=== PATIENT | female | born 1995 | race Hispanic/Latino ===

== ENCOUNTER 2021-12-23 09:28 | Inpatient (IN) | payer OTHER ==
[2021-12-22 11:34] LABS: SARS-CoV-2 NAA Rapid Test Not Detected (NotDetected)
[2021-12-22 11:40] LABS: Hemoglobin 10.6 g/dL (12.0-15.5)
[2021-12-22 12:14] LABS: HBSAg Index 0.28 S/CO (0-0.99); Hep B Surf Ag Non-Reactive S/CO (NonReactive); Syphilis Antibody Nonreactive (Nonreactive); Syphilis Antibody Index 0.04 S/CO (<1.00 Non-Reactive)
[2021-12-23] MEDS ORDERED: Morphine PF 10 MG/10 ML VIAL ONE (11:13)
[2021-12-23] MEDS ORDERED: Ondansetron PF 4 MG/2 ML Vial ONE (11:16)
[2021-12-23] MEDS ORDERED: Dexamethasone 4 mg/ml Vial ONE (11:16)
[2021-12-23] MEDS ORDERED: Glycopyrrolate 0.2 MG/ML 5 ML SYRINGE ONE (11:16)
[2021-12-23] MEDS ORDERED: Oxytocin 10 UNITS/ML VIAL ONE (11:16)
[2021-12-23] MEDS ORDERED: PHENYLEPHRINE-NS 100 MCG/ML 10 ML SYRINGE ONE (11:16)
[2021-12-23] MEDS ORDERED: Phenylephrine 40 MG/NS 250 ML 250 ML ONE (11:16)
[2021-12-23] MEDS ORDERED: Ketorolac Tromethamine 30 MG/ML VIAL ONE (11:16)
[2021-12-23] MEDS ORDERED: Lactated Ringer's 1,000 ML IV SCH (11:29)
[2021-12-23] MEDS ORDERED: Famotidine/PF 20 mg/2ml Vial SLOW IVP PRN (11:29)
[2021-12-23] MEDS ORDERED: Bicitra 30 ML UDCUP PO PRN (11:29)
[2021-12-23] MEDS ORDERED: Promethazine HCl 25 MG/ML VIAL IM PRN ×3 (11:29→15:40)
[2021-12-23] MEDS ORDERED: Ondansetron PF 4 MG/2 ML Vial IVP PRN ×3 (11:29→15:40)
[2021-12-23] MEDS ORDERED: CEFAZOLIN 2 GM in Sodium Chloride 0.9% 100 ML IVPB SCH (11:29)
[2021-12-23] MEDS ORDERED: hydrALAZINE 20 MG/ML VIAL SLOW IVP PRN ×2 (11:29→15:40)
[2021-12-23 11:31] LABS: #Monocytes 0.4 10x3/uL (0.0-1.1); #Neutrophils 5.4 10x3/uL (1.5-8.4); %Basophils 0.1 % (0.0-2.0); %Eosinophils 0.5 % (0.0-6.0); %Lymphocytes 21.7 % (18.0-47.0); %Monocytes 5.7 % (0.0-10.0); %Neutrophils 71.7 % (40.0-75.0); Hemoglobin 10.3 g/dL (12.0-15.5); Mean Corpuscular HGB CONC 32.8 g/dL (32.0-36.0); Mean Corpuscular Hemoglobin 25.7 pg (27.0-33.0); Mean Corpuscular Volume 78.3 fl (81.6-98.3); Mean Platelet Volume 9.1 fl (7.4-10.4); Platelet Count 282 10x3/uL (150-450); Red Blood Cell (RBC) Count 4.01 10x6/uL (3.90-5.03); White Blood Cell (WBC) Count 7.5 10x3/uL (3.5-10.5)
[2021-12-23 11:35] VITALS: BMI 33.1
[2021-12-23] MEDS ORDERED: diphenhydrAMINE 50 MG/ML VIAL IVP PRN (11:45)
[2021-12-23] MEDS ORDERED: Ketorolac Tromethamine 30 MG/ML VIAL IVP SCH ×2 (11:45→16:00)
[2021-12-23] MEDS ORDERED: Communication Order-Pharmacy FS SCH (11:45)
[2021-12-23] MEDS ORDERED: Ketorolac Tromethamine 30 MG/ML VIAL IVP PRN (11:45)
[2021-12-23] MEDS ORDERED: Promethazine HCl 25 MG SUPP PR PRN (11:45)
[2021-12-23] MEDS ORDERED: Fentanyl 100 MCG/2 ML VIAL SLOW IVP PRN (11:45)
[2021-12-23] MEDS ORDERED: Naloxone HCl 0.4 mg/ml Vial IV PRN (11:45)
[2021-12-23] MEDS ORDERED: Ondansetron HCl/PF 4 MG/2 ML Vial IVP PRN (11:45)
[2021-12-23] MEDS ORDERED: Naloxone HCl 0.4 mg/ml Vial IVP PRN ×2 (11:45)
[2021-12-23] MEDS ORDERED: Meperidine HCl/PF 25 MG/ML VIAL SLOW IVP PRN (11:45)
[2021-12-23] MEDS ORDERED: Moisturizing Cream (Eucerin) 113 GM JAR TOP PRN (11:45)
[2021-12-23] MEDS ORDERED: Simethicone Chewable 80 MG TAB PO PRN (15:40)
[2021-12-23] MEDS ORDERED: NS w/ Oxytocin 30 units 500 ML IV SCH (15:40)
[2021-12-23] MEDS ORDERED: Lanolin Ointment 7 GM TUBE TOP PRN (15:40)
[2021-12-23] MEDS ORDERED: diphenhydrAMINE 25 MG CAP PO PRN (15:40)
[2021-12-23] MEDS ORDERED: Bisacodyl 10 MG SUPP PR PRN (15:40)
[2021-12-23] MEDS ORDERED: Boostrix 0.5 ML (Tdap) VIAL (>/=7 yrs of age) IM ONE (15:40)
[2021-12-23] MEDS ORDERED: HYDROcodone/Acetaminophen 5/325 mg Tablet PO PRN (15:40)
[2021-12-23] MEDS: Ferrous Sulfate 325 MG TAB PO SCH (20:13)
[2021-12-23] MEDS: Docusate 100 MG CAP PO SCH (20:13)
[2021-12-23] MEDS: Ketorolac Tromethamine 30 MG/ML VIAL IVP SCH (20:13)
[2021-12-24] MEDS: Ketorolac Tromethamine 30 MG/ML VIAL IVP SCH ×3 (01:56→12:20)
[2021-12-24 04:38] LABS: Hemoglobin 9.3 g/dL (12.0-15.5); Mean Corpuscular HGB CONC 32.5 g/dL (32.0-36.0); Mean Corpuscular Hemoglobin 25.3 pg (27.0-33.0); Mean Corpuscular Volume 77.9 fl (81.6-98.3); Platelet Count 255 10x3/uL (150-450); RBC Distribution Width 13.9 % (11.5-14.5); Red Blood Cell (RBC) Count 3.67 10x6/uL (3.90-5.03); White Blood Cell (WBC) Count 9.1 10x3/uL (3.5-10.5)
[2021-12-24] MEDS: Ferrous Sulfate 325 MG TAB PO SCH ×2 (08:18→21:13)
[2021-12-24] MEDS: HYDROcodone/Acetaminophen 5/325 mg Tablet PO PRN ×3 (08:18→18:41)
[2021-12-24] MEDS: Docusate 100 MG CAP PO SCH ×2 (08:18→21:13)
[2021-12-24] MEDS: Prenatal Vitamin 1 TAB PO SCH (08:18)
[2021-12-24] MEDS: Ibuprofen 800 MG TAB PO SCH (18:40)
[2021-12-25] MEDS: Ibuprofen 800 MG TAB PO SCH ×3 (03:58→19:27)
[2021-12-25] MEDS: Ferrous Sulfate 325 MG TAB PO SCH ×2 (09:25→20:15)
[2021-12-25] MEDS: Prenatal Vitamin 1 TAB PO SCH (09:25)
[2021-12-25] MEDS: Docusate 100 MG CAP PO SCH ×2 (09:25→20:15)
[2021-12-25] MEDS: HYDROcodone/Acetaminophen 5/325 mg Tablet PO PRN (09:25)
[2021-12-25 20:41] VITALS: TEMP 98.1
[2021-12-26] MEDS: Ibuprofen 800 MG TAB PO SCH (03:37)
[2021-12-26 07:59] VITALS: BP 113/55
[2021-12-26] MEDS: Ferrous Sulfate 325 MG TAB PO SCH (08:56)
[2021-12-26] MEDS: Docusate 100 MG CAP PO SCH (08:56)
[2021-12-26] MEDS: Prenatal Vitamin 1 TAB PO SCH (08:56)
== END 2021-12-26 14:00 | disposition home or self-care (01) | DRG 788 ==
LOC: CSHLD 09:28 → CSHPP 15:30
PROVIDERS: ADMIT Family Medicine; ATTEND Family Medicine
PROC: 10D00Z1 Extraction of Products of Conception, Low, Open Approach (ICD-10-PCS; principal; 2021-12-23)
DX: O34.212 Maternal care for vertical scar from previous cesarean delivery (principal); Z37.0 Single live birth; Z20.822 Contact with and (suspected) exposure to COVID-19; Z3A.39 39 weeks gestation of pregnancy; Z79.899 Other long term (current) drug therapy; O99.62 Diseases of the digestive system complicating childbirth; K66.0 Peritoneal adhesions (postprocedural) (postinfection); O62.2 Other uterine inertia
CPT/HCPCS: 36415; 51702; 85014; 85018; 85025; 85027; 86780; 86850; 86900; 86901; 87340; J0690; J1100; J1885; J2274; J2405; J2590; J3490; S0028; U0002

== ENCOUNTER 2023-03-21 10:01 | Inpatient (IN) | payer OTHER ==
[2023-03-21] MEDS: Lactated Ringer's 1,000 ML IV SCH ×3 (10:45→15:53)
[2023-03-21] MEDS ORDERED: Diphenoxylate HCl/Atropine Tablet PO PRN (10:48)
[2023-03-21] MEDS ORDERED: Bicitra 30 ML UDCUP PO PRN (10:48)
[2023-03-21] MEDS ORDERED: hydrALAZINE 20 MG/ML VIAL SLOW IVP PRN ×2 (10:48→16:39)
[2023-03-21] MEDS ORDERED: Misoprostol 200 MCG TAB PR PRN (10:48)
[2023-03-21] MEDS ORDERED: Oxytocin 30 units/NS 500 ML 500 ML IV SCH (10:48)
[2023-03-21] MEDS ORDERED: Tranexamic Acid 1,000 MG/10 ML VIAL IVP PRN (10:48)
[2023-03-21] MEDS ORDERED: Methylergonovine 0.2 MG/ML VIAL IM PRN (10:48)
[2023-03-21] MEDS ORDERED: Famotidine/PF 20 mg/2ml Vial SLOW IVP PRN (10:48)
[2023-03-21] MEDS ORDERED: Ondansetron PF 4 MG/2 ML Vial IVP PRN ×4 (10:48→16:39)
[2023-03-21] MEDS ORDERED: Carboprost 250 MCG/ML AMP IM PRN (10:48)
[2023-03-21] MEDS ORDERED: CEFAZOLIN 2 GM in Sodium Chloride 0.9% 100 ML IVPB SCH (10:48)
[2023-03-21] MEDS ORDERED: Promethazine HCl 25 MG/ML VIAL IM PRN ×3 (10:48→16:39)
[2023-03-21] MEDS ORDERED: diphenhydrAMINE 50 MG/ML VIAL IVP PRN (10:54)
[2023-03-21] MEDS ORDERED: Naloxone HCl 0.4 mg/ml Vial IV PRN (10:54)
[2023-03-21] MEDS ORDERED: Promethazine HCl 25 MG SUPP PR PRN (10:54)
[2023-03-21] MEDS ORDERED: Naloxone HCl 0.4 mg/ml Vial IVP PRN ×2 (10:54)
[2023-03-21] MEDS ORDERED: Meperidine HCl/PF 25 MG (1 mL) VIAL SLOW IVP PRN (10:54)
[2023-03-21] MEDS ORDERED: fentaNYL 50 mcg/mL 1 mL Vial SLOW IVP PRN (10:54)
[2023-03-21] MEDS ORDERED: HYDROmorphone 0.5 MG/0.5 ML SYRINGE SLOW IVP PRN (10:54)
[2023-03-21] MEDS ORDERED: Moisturizing Cream (Eucerin) 113 GM JAR TOP PRN (10:54)
[2023-03-21] MEDS ORDERED: Communication Order-Pharmacy FS SCH (11:00)
[2023-03-21] MEDS ORDERED: Ketorolac Tromethamine 30 MG (1 mL) VIAL IVP SCH (11:00)
[2023-03-21 11:03] VITALS: BMI 33.5
[2023-03-21 11:16] LABS: Hematocrit 33.5 % (34.9-44.5); Hemoglobin 11.1 g/dL (12.0-15.5); Mean Corpuscular HGB CONC 33.1 g/dL (32.0-36.0); Mean Corpuscular Hemoglobin 24.8 pg (27.0-33.0); Mean Corpuscular Volume 74.9 fl (81.6-98.3); Mean Platelet Volume 9.2 fl (7.4-10.4); Platelet Count 256 10x3/uL (150-450); RBC Distribution Width 14.2 % (11.5-14.5); Red Blood Cell (RBC) Count 4.47 10x6/uL (3.90-5.03); White Blood Cell (WBC) Count 7.7 10x3/uL (3.5-10.5)
[2023-03-21] MEDS ORDERED: Dexamethasone 4 mg/ml Vial ONE (11:33)
[2023-03-21] MEDS ORDERED: Oxytocin 10 UNITS/ML VIAL ONE ×3 (11:33→13:33)
[2023-03-21] MEDS ORDERED: Ondansetron PF 4 MG/2 ML Vial ONE (11:33)
[2023-03-21] MEDS ORDERED: Morphine PF 10 MG/10 ML VIAL ONE (11:33)
[2023-03-21] MEDS ORDERED: fentaNYL 50 mcg/mL 1 mL Vial ONE (11:34)
[2023-03-21 11:48] LABS: Syphilis Antibody Nonreactive (Nonreactive); Syphilis Antibody Index 0.04 S/CO (<1.00 Non-Reactive)
[2023-03-21] MEDS ORDERED: NS ONE (11:51)
[2023-03-21] MEDS ORDERED: PHENYLEPHRINE ONE (11:51)
[2023-03-21 12:28] LABS: HBSAg Index 0.25 S/CO (0-0.99); Hep B Surf Ag - L&D Non-Reactive S/CO (NonReactive)
[2023-03-21] MEDS ORDERED: Ketorolac Tromethamine 30 MG (1 mL) VIAL ONE (13:39)
[2023-03-21] MEDS ORDERED: Bisacodyl 10 MG SUPP PR PRN (16:39)
[2023-03-21] MEDS ORDERED: Boostrix 0.5 ML (Tdap) VIAL (>/=7 yrs of age) IM ONE (16:39)
[2023-03-21] MEDS ORDERED: Simethicone Chewable 80 MG TAB PO PRN (16:39)
[2023-03-21] MEDS ORDERED: Lanolin Ointment 7 GM TUBE TOP PRN (16:39)
[2023-03-21] MEDS ORDERED: diphenhydrAMINE 25 MG CAP PO PRN (16:39)
[2023-03-21] MEDS: Ferrous Sulfate 325 MG TAB PO SCH (19:05)
[2023-03-21] MEDS: Ketorolac Tromethamine 30 MG (1 mL) VIAL IVP PRN (19:29)
[2023-03-21] MEDS: Docusate 100 MG CAP PO SCH (19:29)
[2023-03-21] MEDS ORDERED: Meperidine HCl/PF 25 MG (1 mL) VIAL IM PRN (23:15)
[2023-03-21] MEDS ORDERED: HYDROcodone/Acetaminophen 5/325 mg Tablet PO PRN (23:15)
[2023-03-22] MEDS: Ketorolac Tromethamine 30 MG (1 mL) VIAL IVP PRN ×2 (03:26→09:15)
[2023-03-22 04:27] LABS: Hemoglobin 9.6 g/dL (12.0-15.5); Mean Corpuscular Hemoglobin 23.8 pg (27.0-33.0); Mean Corpuscular Volume 74.4 fl (81.6-98.3); Mean Platelet Volume 8.9 fl (7.4-10.4); Platelet Count 227 10x3/uL (150-450); RBC Distribution Width 14.4 % (11.5-14.5); Red Blood Cell (RBC) Count 4.03 10x6/uL (3.90-5.03); White Blood Cell (WBC) Count 9.8 10x3/uL (3.5-10.5)
[2023-03-22] MEDS: Prenatal Vitamin 1 TAB PO SCH (09:15)
[2023-03-22] MEDS: Ferrous Sulfate 325 MG TAB PO SCH (09:15)
[2023-03-22] MEDS: Docusate 100 MG CAP PO SCH ×2 (09:15→22:59)
[2023-03-22] MEDS: HYDROcodone/Acetaminophen 5/325 mg Tablet PO PRN ×2 (13:52→21:58)
[2023-03-22] MEDS: Ibuprofen 800 MG TAB PO SCH ×2 (15:31→22:59)
[2023-03-23] MEDS: Ibuprofen 800 MG TAB PO SCH ×3 (06:34→21:50)
[2023-03-23] MEDS: Ferrous Sulfate 325 MG TAB PO SCH ×3 (07:24→21:57)
[2023-03-23] MEDS: Docusate 100 MG CAP PO SCH ×2 (08:17→21:50)
[2023-03-23] MEDS: Prenatal Vitamin 1 TAB PO SCH (08:17)
[2023-03-23] MEDS: HYDROcodone/Acetaminophen 5/325 mg Tablet PO PRN ×4 (08:29→21:57)
[2023-03-24] MEDS: HYDROcodone/Acetaminophen 5/325 mg Tablet PO PRN ×3 (05:42→13:36)
[2023-03-24] MEDS: Ibuprofen 800 MG TAB PO SCH ×2 (05:42→14:16)
[2023-03-24 08:08] VITALS: BP 112/68; TEMP 98
[2023-03-24] MEDS: Prenatal Vitamin 1 TAB PO SCH (09:21)
[2023-03-24] MEDS: Ferrous Sulfate 325 MG TAB PO SCH (09:21)
[2023-03-24] MEDS: Docusate 100 MG CAP PO SCH (09:21)
== END 2023-03-24 16:30 | disposition home or self-care (01) | DRG 788 ==
LOC: CSHLD 10:01 → CSHPP 16:28
PROVIDERS: ADMIT Family Medicine; ATTEND Family Medicine
PROC: 10D00Z1 Extraction of Products of Conception, Low, Open Approach (ICD-10-PCS; principal; 2023-03-21)
DX: O34.211 Maternal care for low transverse scar from previous cesarean delivery (principal); Z3A.39 39 weeks gestation of pregnancy; Z37.0 Single live birth
CPT/HCPCS: 51702; 85027; 86780; 86850; 86900; 86901; 87340; J1100; J1200; J1885; J2274; J2310; J2405; J2590; J3010; J7120